=== PATIENT | female | born 1970 | race Caucasian/White ===

== ENCOUNTER 2019-12-30 14:56 | Emergency (ER) | payer MEDICARE, MEDICAID ==
[~2019-12-30] VITALS: Ht 154.9 cm; Wt 50.0 kg
[2019-12-30 15:10] VITALS: BP 108/66
[2019-12-30 15:29] LABS: HCG UR SG 1.006 (1.003-1.030); MICROSCOPIC NOT IND
[2019-12-30] MEDS ORDERED: MAGNESIUM CITRATE 300ML ORAL SOL PO ONE (15:30)
--- NOTE | 2019-12-30 15:30 | NUR ---
This is a 49 yo female BIB EMS from [facility] for bilateral lower quadrant abd pain with intermittent diarrhea and constipation. Per EMS, [facility] sent her here for "infected bowel". Patient on hold from [facility] for SI. Hold sent over with paperwork. Patient denies SI/HI at this time, denies depression. C/O bilaterla lower abd pain radiating to right flank and "into pubic bone" with dysuria. VSS, room secured, belongings placed in bag and put in locked stoage. Sitter at door for safety. UA collected and sent
[2019-12-30] MEDS ORDERED: MAGNESIUM CITRATE 300ML ORAL SOL ONE (15:35)
--- NOTE | 2019-12-30 15:49 | NUR ---
Patient medicated per emar, tolerated well. Will continue to monitor
--- NOTE | 2019-12-30 18:52 | NUR ---
REPORT FROM JUAN CARLOS ZAYAS ASSUMING CARE OF PT AT THIS TIME
--- NOTE | 2019-12-30 18:54 | NUR ---
REPORT GIVEN TO MARQUEZ SCHWARTZ. PLAN OF CARE DISCUSSED. [facility] COMPLETED, LITER INFUSED
--- NOTE | 2019-12-30 19:05 | NUR ---
PT UP TO [facility] AT THIS TIME SITTER IN VIEW FOR SAFETY AND CHECKS
--- NOTE | 2019-12-30 19:14 | NUR ---
PT HAD A MODERATE SIZE BOWEL MOVEMENT PT STS SHE STILL FEELS LIKE SHE HAS A LOT OF STOOL LEFT. PT STS SHE WILL JUST DRINK MAG CITRATE AND GO BACK AT THE FACILITY SHE IS STAYING AT. MD TO BE UPDATED.
--- NOTE | 2019-12-30 19:37 | NUR ---
tp rn: pt chart faxed with cover sheet to [facility]. awaiting accepting physician at this time.
--- NOTE | 2019-12-30 20:21 | NUR ---
REPORT TO TOBY FROM PSYCH FACILITY
--- NOTE | 2019-12-30 20:46 | NUR ---
PT RESTING ON GURNEY NO NEEDS AT THIS TIME. SITTER IN HALLWAY
--- NOTE | 2019-12-30 21:46 | NUR ---
SPOKE WITH TOBY AGAIN TO GET ACCEPTING MD NAME. PT READY FOR TRANSPORT BACK TO [facility] AT THIS TIME. THROUGHPUT NOTIFIED
--- NOTE | 2019-12-30 21:56 | NUR ---
HARRY RN: LOIS CONTACTED ABOUT TRANSFER OF PT TO [facility] AT THIS TIME. ALL APPROPRIATE PAPERWORK FAXED
== END 2019-12-30 22:23 ==
LOC: ED 16:08
DX: K59.00 Constipation, unspecified (principal); R19.7 Diarrhea, unspecified; R10.30 Lower abdominal pain, unspecified; F17.200 Nicotine dependence, unspecified, uncomplicated
CPT/HCPCS: 74021; 81003; 81025; 99285